=== PATIENT | female | born 1985 | race Caucasian/White ===

== ENCOUNTER 2023-10-22 09:07 | Emergency (ER) | payer OTHER, SELFPAY ==
[2023-10-22 09:12] VITALS: BP 135/77; PULSE 102; RESP 18; TEMP 36.6; O2SAT 100; BMI 33.7
--- NOTE | 2023-10-22 09:24 | ED_ITS ---
HPI - General Adult General Chief complaint: Back Pain/Injury Stated complaint: BACK PAIN/ FALL Time Seen by Provider: 10/22/23 09:18 Source: patient Mode of arrival: walk-in History of Present Illness HPI narrative: Patient is a 37-year-old female who is Presenting to the Emergency Room with chief complaint of pain to bilateral buttocks with bruising along with pain to her coccyx. Patient was drinking alcohol, was going to jump into a pool, slipped, and landed directly on her buttocks and Sacrum/coccyx. She denied her head. No headache. No neck pain. No other injury besides bruising to bilateral buttocks and along pain along her sacrum and coccyx. Patient is having no difficulty urinating or bowel movements. Patient has been using heat, not taking any Tylenol or Motrin. 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 Patient just finished her menses and is not concerned about and does not want to be tested. Patient has no radiation or radiculopathy or paresthesias into her lower extremities. No acute complaints. No previous injury to sacrum or coccyx. Patient denies any hematuria, melena or hematochezia. . All systems are negative except as noted/marked. All systems reviewed and otherwise negative. . Nurses note and vital signs reviewed and patient is not hypoxic. General: The patient appears Mild distress secondary to pain. Patient is resting uncomfortably on cart. Patient is not toxic, lethargic, or listless. Skin: Warm, dry, no pallor noted. There is no rash noted. No petechiae, purpura. Patient has ecchymosis noted to bilateral buttocks, no palpable hematoma. Patient has a moderate area to the mid left buttock, patient has a small area approximately 3 x 2 to the mid right buttock. No palpable hematoma. Patient has no bruising or ecchymosis around her anus. Patient does have midline coccyx moderate tenderness palpation, no pain to bilateral pelvic brim, with the ASIS or PSIS bilateral. No signs of saline seizure cauda equina. Patient denies any pubic symphysis pain. Head: Normocephalic, atraumatic Eye: Normal conjunctiva, no drainage, EOMI. PERRL Ears, Nose, Mouth, and Throat: oral mucosa is moist. Nares patent. Mouth without vesicles. Cardiovascular: Regular Rate and Rhythm, no murmur, gallop, rub Respiratory: Patient is in no distress, no accessory muscle use, lungs are clear to auscultation, no wheezing, rales or rhonchi Back: non-tender, no CVA tenderness bilaterally to percussion. No CT L midline pain. Patient does have midline sacrum and coccyx Moderate tenderness palpation, difficult to assess secondary to adipose, but no obvious step off or severe pain. No signs of saddle anesthesia or GI: soft, no tenderness Musculoskeletal: Patient has full range of motion of all of the extremities, no motor, sensory, or focal neurological deficits; Patient is walking slowly secondary to coccyx pain. Neurological: A&O x3, normal speech Psychiatric: Cooperative Related Data Previous Rx's Medication Instructions Recorded hydrocodone 5 mg-acetaminophen 325 1 tab PO Q4H PRN pain #8 tabs 10/22/23 mg tablet Allergies Allergy/AdvReac Type Severity Reaction Status Date / Time NSAIDS (Non-Steroidal AdvReac Severe Verified 10/22/23 09:31 Anti-Inflamma Exam Constitutional Vital Signs, click to edit/add: Last Vital Signs Temp 98 F 10/22/23 09:12 Pulse 102 H 10/22/23 09:12 Resp 18 10/22/23 09:12 BP 135/77 10/22/23 09:12 Pulse Ox 100 10/22/23 09:12 Course Vital Signs Vital signs: Vital Signs Temperature 98 F 10/22/23 09:12 Pulse Rate 102 H 10/22/23 09:12 Respiratory Rate 18 10/22/23 09:12 Blood Pressure 135/77 10/22/23 09:12 Pulse Oximetry 100 10/22/23 09:12 Temperature 98 F 10/22/23 09:12 Pulse Rate 102 H 10/22/23 09:12 Respiratory Rate 18 10/22/23 09:12 Blood Pressure 135/77 10/22/23 09:12 Pulse Oximetry 100 10/22/23 09:12 Medical Decision Making MDM Narrative Medical decision making narrative: Patient will start using ice and stop using heat. Patient will use either Tylenol or pain pill to help with pain, patient understands to take not both Tylenol and [place] together secondary to too much Tylenol intake. Education on using a pillow or done a pack, work restrictions were given as well. A copy of patient's x-ray was given to her as well, x-ray report was explained. No questions at discharge. Patient understand the pain could be there for the next 2-3 weeks. If any other significant pain, difficulty urinating or bowel movements, patient will follow- up with PCP for further testing if needed. Discharge Plan Discharge Chief Complaint: Back Pain/Injury Clinical Impression: Coccygeal contusion, Ecchymosis Patient Disposition: Home, Self-Care Condition: Fair Prescriptions / Home Meds: New hydrocodone-acetaminophen 5-325 mg tablet 1 tab PO Q4H PRN (Reason: pain) Qty: 8 0RF Instructions: Coccyx Injury (ED), Contusion in Adults (ED), P.R.I.C.E. Treatment (ED), Ecchymosis (ED) Additional Instructions: Use ice 20 minutes on, 20 minutes off. Do not use heat. He may have pain for the next 3-4 weeks. A significant difficulty with urinating, bowel movements, or any other significant pain occurs, follow-up with PCP for further testing if indicated. Work restrictions given. Use pain medication as needed, be cautious of pain medication causing constipation. Use a pillow or donut pad for the next 1-2 weeks to help with comfort when sitting. Stand Alone Forms: Work/School Release, Portal Instructions Referrals: Physician,Non-Staff, MD [Primary Care Provider] - 1 week
--- NOTE | 2023-10-22 09:53 | XR_ITS ---
The [address] [address] Patient Name: LUIS BADILLO MRN: [facility]:[id number] date: 1985 Sex: F Assigned Patient Location: ED.MAIN Current Patient Location: ED.MAIN Accession/Order Number: [id number] Exam Date: 10/22/2023 09:48 Report Date: 10/22/2023 10:06 At the request of: DEMETRIUS ABREU Procedure: XR sacrum coccyx min 2V EXAM: Sacrum and coccyx HISTORY: Pain and bruising since a fall on 10/19/2023. TECHNIQUE: 3 views of the sacrum and coccyx were obtained. FINDINGS: There is no definite evidence of fracture or dislocation. There are no suspicious bone lesions. There is asymmetric sacralization of L5 with a pseudarthrosis at the left SI joint. Soft tissues are normal. XR/XR sacrum coccyx min 2V IMPRESSION: No definite acute osseous injury. Asymmetric transitional lumbar segment, with a pseudarthrosis of the left SI joint. This variant anatomy is often a source of chronic pain. Electronically authenticated by: NIMO HODGE Date: 10/22/2023 10:06
== END 2023-10-22 10:38 | disposition home or self-care (01) ==
PROVIDERS: Emergency Provider Emergency Medicine
DX: S30.0XXA Contusion of lower back and pelvis, initial encounter (principal); W01.0XXA Fall on same level from slipping, tripping and stumbling without subsequent striking against object, initial encounter
CPT/HCPCS: 72220; 99283